=== PATIENT | male | born 1955 | race Caucasian/White ===

== ENCOUNTER 2017-03-15 17:56 | Emergency (ER) | payer OTHER ==
[~2017-03-15] VITALS: Ht 170.2 cm; Wt 67.6 kg
[~2017-03-15 17:56] MED LIST: CEPHALEXIN500 MG PO; NORCO 5-325 TA1 EACH PO
[2017-03-15] MEDS ORDERED: AUGMENTIN 875-1 EACH PO (20:31)
== END 2017-03-15 22:20 | disposition home or self-care (01) ==
LOC: ED 17:56
DX: N49.2 Inflammatory disorders of scrotum (principal); F17.200 Nicotine dependence, unspecified, uncomplicated
CPT/HCPCS: 76870; 80053; 81001; 85025; 96365; 96375; 99284; J0295; J2543; J7120

== ENCOUNTER 2018-12-19 16:07 | Emergency (ER) | payer OTHER ==
[~2018-12-19] VITALS: Ht 170.2 cm; Wt 66.2 kg
--- OUTSIDE RECORDS SUMMARY | ~2018-12-19 | XMS | Clinical Summary ---
Demographics + + + | Address | [address] | | | [place] [address] | + + + | Home Phone | | + + + | Preferred Language | Unknown | + + + | Marital Status | Unknown | + + + | Congregation Affiliation | Unknown | + + + | Race | Unknown | + + + | Ethnic Group | Unknown | + + + Author + + + | Author | [facility] | | | and [place] | + + + | Organization | [facility] | | | and [place] | + + + | Address | Unknown | + + + | Phone | Unavailable | + + + Support + + +---------+ + | Name | Relationship | Address | Phone | + + +---------+ + | Emelyn English | ECON | Unknown | | + + +---------+ + Care Team Providers + +------+ + | Care Diamond Assorter Name | Role | Phone | + +------+ + PCP | Unavailable | + +------+ + Allergies Not on File Medications + + + +---------+------+------+-------+ | Medication | Sig | Dispensed | Refills | Star | End | Statu | | | | | | t | Date | s | | | | | | Date | | | + + + +---------+------+------+-------+ | benazepril | Take 10 mg by mouth | | 0 | | | Activ | | (LOTENSIN) 10 mg | Daily. | | | | | e | | tablet | | | | | | | + + + +---------+------+------+-------+ | amLODIPine | Take 5 mg by mouth | | 0 | | | Activ | | (NORVASC) 5 mg | Daily. | | | | | e | | tablet | | | | | | | + + + +---------+------+------+-------+ Active Problems Not on file Encounters +--------+ + + + + | Date | Type | Specialty | Care Team | Description | +--------+ + + + + | 10/01/ | Documentati | Infectious Diseases | Phoebe Quiros, | Other ( Referral | | 2019 | on | | Factory Hand | From [facility] | | | | | | C) | +--------+ + + + + from Last 3 Months Social History + +-------+ +--------+------+ | Tobacco Use | Types | Packs/Day | Years | Date | | | | | Used | | + +-------+ +--------+------+ | Never Assessed | | | | | + +-------+ +--------+------+ + + + | Sex Assigned at | Date Recorded | | | | + + + | Not on file | | + + + + + + + | Job Start Date | Occupation | Industry | + + + + | Not on file | Not on file | Not on file | + + + + + + + + | Travel History | Travel Start | Travel End | + + + + + + | No recent travel history available. | + + Last Filed Vital Signs Not on file Plan of Treatment + + + + + | Health Maintenance | Due Date | Last Done | Comments | + + + + + | Vaccine: | | | | | Dtap/Tdap/Td (1 - | 7 | | | | Tdap) | | | | + + + + + | Vaccine: Zoster (1 | | | | | of 2) | 8 | | | + + + + + | Vaccine: Influenza | | | | | (#1) | 9 | | | + + + + + Results Not on filefrom Last 3 Months Insurance + +--------+ +--------+ +---------+--------+ | Payer | Benefi | Subscriber | Effect | Phone | Address | Type | | | t Plan | ID | marguerite | | | | | | / | | Dates | | | | | | Group | | | | | | + +--------+ +--------+ +---------+--------+ | [employer] | [employer] | [id number] | 09/14/19 | [phone] | | Medica | | MEDICAID HMO | HEALTH | | 19-Pre | 1 | | id | | | MDCD | | sent | | | | | | [place] | | | | | | + +--------+ +--------+ +---------+--------+ + +--------+ +--------+ + + | Guarantor Name | Accoun | Relation to | Date | Phone | Billing Address | | | t Type | Patient | of | | | | | | | | | | + +--------+ +--------+ + + | Saeed Reeder | Person | Self [birth year] | [address] | | | al/Fam | | 1956 | [phone] | [address] [place], | | | [address]uardo | | | [address] (Home) | [place] [address] | | | | | | [phone] | | | | | | | 9 (Work) | | + +--------+ +--------+ + + Advance Directives Patient has advance care planning documents on file. For more information, please contact:[facility] [place] [address]"
--- OUTSIDE RECORDS SUMMARY | ~2018-12-19 | XMS | Clinical Summary ---
Demographics + + + | Address | 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 For more information, please contact:[facility] [place] [address]"
--- OUTSIDE RECORDS SUMMARY | ~2018-12-19 | XMS | Encounter Summary ---
Demographics + + + | Address | [address] | | | [place] [address] | + + + | Home Phone | | + + + | Preferred Language | Unknown | + + + | Marital Status | Unknown | + + + | Gnosticism Affiliation | Unknown | + + + | Race | Unknown | + + + | Ethnic Group | Unknown | + + + Author + + + | Author | [facility] | | | and [place] | + + + | Organization | [facility] | | | [...] Team Providers + +------+ + | Care Block Machine Operator Name | Role | Phone | + +------+ + PCP | Unavailable | + +------+ + Reason for Visit +--------+ + | Reason | Comments | +--------+ + | Other | Referral From [facility] | +--------+ + Encounter Details +--------+ + + + + | Date | Type | Department | Care Team | Description | +--------+ + + + + | 10/01/ | Documentati | [facility] | Quiros Phoebe, | Other ( Referral | | 2019 | on | INFECTIOUS DISEASE | Helpdesk Specialist | From [facility] | | | | [address] | | C) | | | | [place], [place] | | | | | | [address] | | | | | | [phone] | | | +--------+ + + + + Social History + +-------+ +--------+------+ | Tobacco [...] recent travel history available. | + + documented as of this encounter Progress Phoebe Barahona, Helpdesk Specialist - 10/01/2018 1317 PDT Referral From [facility] For Hep [facility]. Record sent to scan. Sally CMA. d ocumented in this encounter Plan of Treatment Not on filedocumented as of this encounter Visit Diagnoses Not on filedocumented in this encounter"
--- OUTSIDE RECORDS SUMMARY | ~2018-12-19 | XMS | Encounter Summary ---
Demographics + + + | Address | [address] | | | [place] [address] | + + + | Home Phone | | + + + | Preferred Language | Unknown | + + + | Marital Status | Unknown | + + + | Faith Affiliation | Unknown | + + + | Race | Unknown | + + + | Ethnic Group | Unknown | + + + Author + + + | Author | [facility] | | | and [place] | + + + | Organization | [facility] | | | [...] Team Providers + +------+ + | Care Recovery Unit Operator Name | Role | Phone | [...] + + | 10/01/ | Documentati | [facility] | Quiros Phoebe, | Other ( Referral | | 2019 | on | INFECTIOUS DISEASE | Corporate Trust Officer | From [facility] | | | | [address] | | C) | | | | [place], [place] | | | | | | [address] | | | | | | [phone] | | | +--------+ + + + [...] as of this encounter Progress Phoebe Barahona, Corporate Trust Officer - 10/01/2018 1317 PDT Referral From [facility] For Hep C. Record sent to scan. Sally CMA. d ocumented in this encounter Plan of Treatment Not on filedocumented as of this encounter Visit Diagnoses Not on filedocumented in this encounter"
[~2018-12-19 16:07] MED LIST changes: +AUGMENTIN 875-1 EACH PO
[2018-12-19] MEDS ORDERED: BENAZEPRIL HCL10 MG PO (16:19)
[2018-12-19] MEDS ORDERED: AMLODIPINE BESYL5 MG PO (16:19)
== END 2018-12-19 18:12 | disposition home or self-care (01) ==
LOC: ED 16:07
DX: S69.91XA Unspecified injury of right wrist, hand and finger(s), initial encounter (principal); Z87.891 Personal history of nicotine dependence; Z79.899 Other long term (current) drug therapy; W01.198A Fall on same level from slipping, tripping and stumbling with subsequent striking against other object, initial encounter; Y99.0 Civilian activity done for income or pay
CPT/HCPCS: 73110; 99283-25; A9270

== ENCOUNTER 2023-12-20 17:00 | Emergency (ER) | payer OTHER ==
[~2023-12-20] VITALS: Ht 170.2 cm; Wt 72.8 kg
[~2023-12-20 17:00] MED LIST changes: +AMLODIPINE BESYL5 MG PO; +BENAZEPRIL HCL10 MG PO
[2023-12-20] MEDS ORDERED: ATORVASTATIN CA40 MG PO (17:31)
[2023-12-20] MEDS ORDERED: FLUTICASONE PRO16 GM NAS (17:32)
[2023-12-20] MEDS ORDERED: TYLENOL EXTRA500 MG PO (17:33)
[2023-12-20] MEDS ORDERED: TETRACAINE HCL 0.5% 4 ML BTL OU SCH (17:45)
[2023-12-20] MEDS ORDERED: FLUORESCEIN SOD 1 EA STRP OU ONE (17:45)
[2023-12-20] MEDS ORDERED: TETANUS-DIPHTHERIA TOXOIDS/PF 0.5 ML VIAL IM ONE ×2 (18:15→18:30)
[2023-12-20] MEDS ORDERED: ERYTHROMYCIN 3.5 GM HOME.PACK OP ONE ×2 (18:15→18:30)
[2023-12-20] MEDS ORDERED: HYDROCODONE BIT/ACETAMINOPHEN 5/325 MG 1 TAB HOME.PACK PO ONE (18:15)
[2023-12-20] MEDS ORDERED: HYDROCODON-ACE1 EA10 PO (18:18)
[2023-12-20] MEDS ORDERED: DIPHTH,PERTUSS(ACELL),TET VAC 0.5 ML SYRINGE IM ONE (18:30)
[2023-12-20 19:05] VITALS: BP 177/93
== END 2023-12-20 19:05 | disposition home or self-care (01) ==
LOC: ED 17:00
DX: T20.16XA Burn of first degree of forehead and cheek, initial encounter (principal); X03.0XXA Exposure to flames in controlled fire, not in building or structure, initial encounter
CPT/HCPCS: 90471; 90714; 99283-25; A9270

== ENCOUNTER 2024-11-09 19:24 | Emergency (ER) | payer MEDICARE ==
[~2024-11-09] VITALS: Ht 167.6 cm; Wt 71.0 kg
[~2024-11-09 19:24] MED LIST changes: +ATORVASTATIN CA40 MG PO; +FLUTICASONE PRO16 GM NAS; +HYDROCODON-ACE1 EA10 PO; +TYLENOL EXTRA500 MG PO
[2024-11-09 22:41] LABS: BLOOD/HGB, URINE LARGE (Negative); KETONE, URINE TRACE (Negative); LEUK ESTERASE, URINE SMALL (negative); NITRITE, URINE POSITIVE (negative)
[2024-11-09 22:47] LABS: EPITHELIAL CELLS, URINE SQUAMOUS 1+ /lpf (0-1+)
[2024-11-09 22:48] LABS: BACTERIA, URINE RARE /hpf (negative); CASTS, URINE NONE SEEN \\lpf; CRYSTALS, URINE NONE SEEN (0-1+); REFLEX CULTURE, URINE Yes (No)
[2024-11-09] MEDS ORDERED: PYRIDIUM100 MG PO (23:11)
[2024-11-09] MEDS ORDERED: MACROBID 100 M100 MG PO (23:11)
[2024-11-09] MEDS ORDERED: PHENAZOPYRIDINE HCL 100 MG TAB PO ONE (23:15)
[2024-11-09] MEDS ORDERED: ACETAMINOPHEN 500 MG TAB PO ONE (23:15)
[2024-11-09] MEDS ORDERED: NITROFURANTOIN MONOHYD MACROCR 100 MG HOME.PACK PO ONE (23:15)
[2024-11-09 23:27] VITALS: BP 132/92
== END 2024-11-09 23:30 | disposition home or self-care (01) ==
LOC: ED 19:24
PROVIDERS: Internal Medicine
DX: N39.0 Urinary tract infection, site not specified (principal); I10 Essential (primary) hypertension; F15.11 Other stimulant abuse, in remission; B19.20 Unspecified viral hepatitis C without hepatic coma; Z87.891 Personal history of nicotine dependence; Z79.899 Other long term (current) drug therapy
CPT/HCPCS: 81001; 87077; 87088; 99283; A9270

== ENCOUNTER 2024-11-25 18:56 | Emergency (ER) | payer MEDICARE, OTHER ==
[~2024-11-25] VITALS: Ht 167.6 cm; Wt 73.9 kg
[~2024-11-25 18:56] MED LIST changes: +MACROBID 100 M100 MG PO; +PYRIDIUM100 MG PO
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
[2024-11-25 20:25] LABS: BASOPHILS 0.5 % (0.2-1.2); EOSINOPHILS 1.0 % (0.8-7.0); LYMPHOCYTES 10.1 % (21.8-53.1); MCH 32.0 PG (25.7-32.2); MCHC 36.3 g/dL (32.3-36.5); MCV 88.1 fL (79.0-92.2); MONOCYTES 8.8 % (5.3-12.2); NEUTROPHILS 79.2 % (34.0-67.9); RBC 3.53 M/uL (4.63-6.08)
[2024-11-25 20:37] LABS: ALT (SGPT) 50.0 U/L (14-59); AST (SGOT) 54.0 U/L (15-37); GLOMERULAR FILTRATION RATE,EST 101.0 mL/min (>60); PROTEIN, TOTAL 7.6 g/dL (6.4-8.2); UREA NITROGEN 7.0 mg/dL (7-18)
[2024-11-25 20:42] LABS: BLOOD/HGB, URINE MODERATE (Negative); KETONE, URINE >=80 (Negative); LEUK ESTERASE, URINE MODERATE (negative); NITRITE, URINE NEGATIVE (negative)
[2024-11-25 20:47] LABS: BACTERIA, URINE RARE /hpf (negative); CASTS, URINE NONE SEEN \\lpf; CRYSTALS, URINE NONE SEEN (0-1+); EPITHELIAL CELLS, URINE SQUAMOUS 1+ /lpf (0-1+)
[2024-11-25 20:48] LABS: REFLEX CULTURE, URINE Yes (No)
[2024-11-26] MEDS ORDERED: MACROBID 100 M100 MG PO (00:33)
[2024-11-26] MEDS ORDERED: NITROFURANTOIN MONOHYD MACROCR 100 MG HOME.PACK PO ONE ×2 (00:36→00:45)
[2024-11-26 01:23] VITALS: BP 132/74
== END 2024-11-26 01:25 | disposition home or self-care (01) ==
LOC: ED 18:56
PROVIDERS: Family Medicine
DX: E87.1 Hypo-osmolality and hyponatremia (principal); T83.091A Other mechanical complication of indwelling urethral catheter, initial encounter; Y84.6 Urinary catheterization as the cause of abnormal reaction of the patient, or of later complication, without mention of misadventure at the time of the procedure; I10 Essential (primary) hypertension; Z87.891 Personal history of nicotine dependence; Z79.899 Other long term (current) drug therapy
CPT/HCPCS: 36415; 51798; 73060; 80053; 81001; 84295; 85025; 87077; 87088; 87186; 99283; J7131

== ENCOUNTER 2025-01-03 09:44 | Day surgery (SDC) | payer MEDICARE ==
[~2025-01-03] VITALS: Ht 167.6 cm; Wt 75.0 kg
[~2025-01-03 09:44] MED LIST changes: -AMLODIPINE BESYL5 MG PO; -BENAZEPRIL HCL10 MG PO; +CEFAZOLIN SODIUM 2 GM in SODIUM CHLORIDE 0.9% 100 ML IV SCH; +CRANBERRY200 MG PO; +IBLOOD GLUCOSE TEST STRIP 1 EA TEST VI PRN; +LACTATED RINGER'S 1,000 ML IV SCH; +LIDOCAINE HCL 1% 5 ML SDV INJ ONE; +LOTENSIN40 MG PO; +NORVASC10 MG PO; +TAMSULOSIN HCL0.4 MG PO
[2025-01-03 10:17] VITALS: BP 114/74
[2025-01-03] MEDS ORDERED: SEVOFLURANE 250 ML BTL INH ONE (10:33)
--- NOTE | 2025-01-03 10:38 | NUR ---
FAMILY AT BS.
--- NOTE | 2025-01-03 11:37 | NUR ---
1035 warm blankets on. update given.
--- NOTE | 2025-01-03 11:37 | NUR ---
1120 dr kashif english break pt updated with this. denies any needs. iv patent.
--- NOTE | 2025-01-03 11:50 | NUR ---
emptied 250 ml yellow urine from leg bag.
[2025-01-03] MEDS ORDERED: MORPHINE SULFATE 4 MG/ML VIAL IV PRN (12:30)
[2025-01-03] MEDS ORDERED: FLUTICASONE PROPIONATE 50 MCG BTL NAS PRN (12:30)
[2025-01-03] MEDS ORDERED: HYDROmorphone HCL 1 MG/ML SYR IV PRN ×2 (12:30→13:30)
[2025-01-03] MEDS ORDERED: OXYCODONE/APAP 5/325 TAB PO PRN (12:30)
[2025-01-03] MEDS ORDERED: LACTATED RINGER'S 1,000 ML IV SCH (12:30)
[2025-01-03] MEDS ORDERED: ACETAMINOPHEN 500 MG TAB PO PRN (12:30)
[2025-01-03] MEDS ORDERED: ROCURONIUM BROMIDE 50 MG/5 ML SYR ONE ×2 (12:34→13:49)
[2025-01-03] MEDS ORDERED: fentaNYL citrate 100 MCG/2 ML VIAL ONE ×2 (12:34→13:31)
[2025-01-03] MEDS ORDERED: LIDOCAINE HCL 2% 5 ML SDV ONE (12:34)
[2025-01-03] MEDS ORDERED: DEXAMETHASONE SOD PHOS 4 MG/ML VIAL ONE (13:01)
[2025-01-03] MEDS ORDERED: GLYCOPYRROLATE 1 MG/5 ML MDV ONE (13:26)
[2025-01-03] MEDS ORDERED: MAGNESIUM SULFATE 1 GM/2 ML VIAL ONE (13:26)
[2025-01-03] MEDS ORDERED: fentaNYL citrate 50 MCG/ML SDV IV PRN (13:30)
[2025-01-03] MEDS ORDERED: IBLOOD GLUCOSE TEST STRIP 1 EA TEST VI PRN (13:30)
[2025-01-03] MEDS ORDERED: NALOXONE HCL 0.4 MG SYR IV PRN (13:30)
[2025-01-03] MEDS ORDERED: SUGAMMADEX SODIUM 200 MG/2 ML ML ONE (13:49)
[2025-01-03] MEDS ORDERED: KETOROLAC TROMETHAMINE 30 MG/ML VIAL ONE (13:49)
[2025-01-03] MEDS ORDERED: TRANEXAMIC ACID 1,000 MG/10 ML AMP ONE (13:59)
--- NOTE | 2025-01-03 15:00 | NUR ---
PT TO ROOM 125 FROM PACU - 3 STAFF TRSF LATERAL FROM STRECHER TO BED, ORIENTED TO CALL LIGHT, CBI WNL - COUNTED WITH LILY VARGHESE, PT DENIES NEEDS, FAMILY AT SIDE. CALL LIGHT IN REACH - SCD'S ON IV TO R ARM WNL.
[2025-01-03 15:30] VITALS: BP 121/94
[2025-01-03] MEDS ORDERED: LEVOFLOXACIN500 MG PO (16:04)
[2025-01-03] MEDS ORDERED: OXYCODONE HCL5 M1 PO (16:05)
--- NOTE | 2025-01-03 16:14 | NUR ---
in room with rt - pt awake and sats 96% at 1 L. pt resting with call light.
--- NOTE | 2025-01-03 16:19 | NUR ---
01/03/25 1619 Janie Tinsley Litzy 1433-PT PRESENTS TO PACU, SEMI CARMEN POSITION, AWAKE BUT DROWSY. PT DENIES PAIN BUT COMPLAINS OF NAUSEA. PT COUGHING, DRY WRETCHING AND BELCHING. LR HANGING TO RW IV, O2 AT 6L PER MASK, BREATHING EVEN AND NON LABORED. ABD SOFT, NON DISTENDED. CBI INFUSING, NO DRAINAGE AROUND CATHETER, RED COLORED FLUID IN DRAINAGE BAG. JOHNSON BAG EMPTIED FOR 1200 ML, APPROX 2050 ML MISSING FROM CBI BAGS. ONE BAG CLAMPED AND MARKED. ALL MONITORS IN PLACE. 1435- PT CONTINUES TO COUGH AND WRETCH, MOVED TO ROOM AIR. 1436- MEDICATED WITH ZOFRAN. 1440- PT SATS DROP TO 84% ON ROOM AIR, PT FOLLOWS INSTRUCTION TO DEEP BREATH AND SATS IMPROVE TO 91-92%, BUT THEN DROP BACK INTO THE 80'S. O2 PLACED PER NC AT 2L. 1445- PT CONTINUES TO COMPLAIN OF NAUSEA, MEDICATED WITH INAPSINE. 1450- PT RESTING INTERMITTENTLY. REPORTS HIS VISION FEELS "TRAVIS". ENCOURAGED TO REST WITH EYES CLOSED, TO POTENTIALLY IMPROVE NAUSEA. 1505- PT WAKES INTERMITTENTLY, REPORTS HIS NAUSEA IS IMPROVING JUST FEELS QUEASY. PT USING ICE CHIPS TO WET MOUTH, TOLERATING WELL. 1517- PLAN TO RETURN TO TAKE PT TO MED/SURG. 1150 ML OF CBI INFUSED, 1175 ML OF YELLOW TINGED FLUID EMPTIED FROM JOHNSON BAG. BAGS REMARKED TO START COUNTS FOR MED/SURG. NO RED OR PINK NOTED IN JOHNSON BAG. 1530- PT TAKEN TO ROOM 125, FAMILY IN ROOM. PT AWAKE BUT DROWSY. CBI CONTINUES TO INFUSE. HELPED SLIDE PT FROM STRETCHER TO BED AND VITALS OBTAINED. LR TKO TO RW IV. REPORT TO Cali LUGO RN AT BEDSIDE, CARE OF PT TURNED OVER AT THIS TIME.
[2025-01-03 16:30] VITALS: BP 118/61
[2025-01-03] MEDS ORDERED: VENTOLIN HFA18 GM INH (17:14)
--- NOTE | 2025-01-03 17:14 | NUR ---
MED REC COMPLETE
[2025-01-03 17:30] VITALS: BP 128/68
--- NOTE | 2025-01-03 18:02 | NUR ---
pt talking on phone, cbi lezama drainage light faint pink - call light in reach, vitals wnl - call light in reach - pt tolerated reg diet - xtra pudding.
[2025-01-03 18:37] VITALS: BP 129/65
--- NOTE | 2025-01-03 18:41 | NUR ---
pt denies pain at this time, watching tv - vs wnl. cbi light pink draining to lezama, call light in reach.
--- NOTE | 2025-01-03 19:41 | NUR ---
REPORT RECEIVED FROM DAY SHIFT RN. PT LYING IN BED ALERT AND ORIENTED. URINE IN JOHNSON TUBING CLEAR YELLOW. CBI CLAMPED AT THIS TIME. CELL PHONE PLACED IN PT JACKET POCKET PER REQUEST. NO FURTHER NEEDS. WHITE BOARD UPDATED. CALL LIGHT IN REACH.
[2025-01-03 20:08] VITALS: BP 118/66
--- NOTE | 2025-01-03 20:20 | NUR ---
PT RESTING WITH EYES CLOSED. AWAKENS EASILY. EVENING ASSESSMENT COMPLETE. VS AND I&O OBTAINED. CBI REMAINS CLAMPED. URINE IN JOHNSON TUBING CLEAR YELLOW. PT DENIES PAIN OR NAUSEA. 1L/NC IN PLACE. NOT CHORNIC. SpO2 MID 90'S. CPOX AND SCD'S IN PLACE. PT DENIES QUESTIONS OR CONCERNS. BED ALARM FOR SAFETY. CALL LIGHT IN REACH.
--- NOTE | 2025-01-03 22:38 | NUR ---
PT AWAKE IN BED. GOWN AND LINENS CHANGED DUE TO PT BEING SWEATY. PT DENIES PAIN. URINE IN JOHNSON TUBING PINK TINGED. CBI CLAMPED. OXYGEN TITRATED OFF AT THIS TIME. CPOX IN PLACE. NO FURTHER NEEDS. CALL LIGHT IN REACH.
--- NOTE | 2025-01-03 23:26 | NUR ---
CPOX ALARMING. ISSUE RESOLVED. SpO2 MID 90'S ON RA. FRESH WATER PROVIDED. NO FURTHER NEEDS.
[2025-01-04 00:48] VITALS: BP 148/69
--- NOTE | 2025-01-04 00:56 | NUR ---
CPOX ALARMING. SpO2 MID 80'S ON RA PER PT. SpO2 94% ON RA UPON ENTERING ROOM. 1L/NC PLACED. VS AND I&O OBTAINED. JOHNSON PATENT WITH QS PINK TINGED URINE. PT DENIES PAIN OR NAUSEA. NO FURTHER NEEDS. BED ALARM FOR SAFETY. CALL LIGHT IN REACH.
--- NOTE | 2025-01-04 02:56 | NUR ---
PT RESTING IN BED WITH EYES CLOSED. RESPIRATIONS EVEN. CALL LIGHT IN REACH.
--- NOTE | 2025-01-04 05:24 | NUR ---
PT IN BED RESTING WITH EYES CLOSED. SpO2 97% WITH 1L/NC. HR 60'S.
[2025-01-04 06:35] VITALS: BP 168/787
--- NOTE | 2025-01-04 06:48 | NUR ---
PT RESTING IN BED WITH EYES CLOSED. AWAKENS EASILY. VS AND I&O OBTAINED. PT DENIES PAIN. JOHNSON PATENT WITH FAINT PINK TINGED URINE. CBI CLAMPED. SCHEDULED MEDS ADMIN PER EMAR. PT DENIES NEEDS. CALL LIGHT IN REACH.
--- NOTE | 2025-01-04 07:58 | NUR ---
PATIENT IN BED. REPORT RECEIVED FROM HELDER VARGHESE. MD BUSTAMANTE AT BEDSIDE. VERBAL ORDER RECEIVED TO MONITOR FOR INCREASING RED COLOR IN URINE IF PATIENT IS SUCESSFUL WITH BM THIS MORNING. TITRATE PATIENT OFF CURRENT 1 LITER OF OXYGEN, START BEDSIDE INCINTIVE SPIROMETER AND PATIENT TEACHING. NO FURTHER ORDERS AT THIS TIME. PATIENT ON TOILET. SOAKING ROOM OPERATOR ASSISTED PATIENT BACK TO BED. PATIENT REPORTS HE WAS UNABLE TO HAVE A BM, REPORTS HE DID NOT STRAIN. CALL LIGHT IN REACH. IV FLUID INFUSING. SCDS ON, CBI CLAMPED, URINE PINK. CPOX ON, CALL LIGHT IN REACH.
--- NOTE | 2025-01-04 08:13 | NUR ---
PATIENT IN BED. SCHEDULED MEDICATION ADMINISTERED. SCDS IN PLACE. CBI CLAMPED, URINE PINK. IV FLUID INFUSING WITHOUT DIFFICULTY. O2 SAT 92% ON ROOM AIR, IS AT BEDSIDE. CALL LIGHT AND PERSONAL BELONGINGS IN REACH.
--- NOTE | 2025-01-04 08:46 | NUR ---
UR CLINICAL REVIEW: 2 MN FOR VERSALUS-MEETS EXTENDED RECOVERY FOR TURP WITH NEED FOR 24 HR CBI AND PAIN CONTROL MEDICARE EXTENDED STAY 01/03/25 @ 1224 ORDER MATCHES REG NO AUTH REQUIRED PER MEDICARE GUIDELINES DISCHARGE TO HOME ANTICIPATED 01/04/25
[2025-01-04] MEDS ORDERED: AMLODIPINE BESYLATE 5 MG TAB PO SCH (09:00)
--- NOTE | 2025-01-04 09:10 | NUR ---
ALERT AND ORIENTED IN BED. PLANS TO DC TO HOME TODAY. LIVES IN AN APARTMENT, HAS STAIRS, DOES OK WITH THEM AT BASELINE AND HAS A CANE AND OTHER DME HE STATES IF HE NEEDS ANY TO ASSIST WITH MOBILITY. STATES AT BASELINE HE DRIVES AND HAS NO DIFFICULTY PAYING FOR FOOD, MEDS, UTILITIES. NO CM NEEDS AT THIS TIME.
[2025-01-04 09:52] VITALS: BP 127/69
--- NOTE | 2025-01-04 10:34 | NUR ---
SBA TO THE BATHROOM. PATIENT WAS STEADY ON THEIR FEET WITH NO REPORTS OF PAIN OR NAUSEA. PATIENT RETURNED TO BED. SCD'S AND CPOX WERE REATTACHED. CALL LIGHT AND PERSONAL ITEMS ARE WITHIN REACH.
--- NOTE | 2025-01-04 11:03 | NUR ---
PATIENT IN BED. 500 ML CLEAR RED URINE FROM JOHNSON CATHETER. PATIENT REPORTS HE HAS BEEN USING THE IS AND IT CAUSED HIM TO COUGH. PATIENT EDUCATION PROVIDED. ENCOURAGE PATIENT TO DRINK WATER, PROVIDED PATIENT WITH TWO CUPS FRESH ICE WATER, JOHNSON EMPTIED. CALL LIGHT AND PERSONAL BELONGINGS IN REACH. PATIENT DENIES CONCERNS.
[2025-01-04 11:05] VITALS: BP 127/69
--- NOTE | 2025-01-04 12:00 | NUR ---
PATIENT IN BED. CBI CAPPED, JOHNSON CATHETER PATENT AND URINE CLEAR PINK. IV CATHETER REMOVED WNL, TIP INTACT. DISCHARGE TEACHING PROVIDED WITH VERBAL AND WRITTEN INSTRUCTION. PATIENT VERBALIZED UNDERSTANDING AND DENIES QUESTIONS OR CONCERNS AT THIS TIME. CALL LIGHT IN REACH.
[2025-01-04 12:09] VITALS: BP 153/64
--- NOTE | 2025-01-04 12:27 | NUR ---
PATIENT SITTING AT EDGE OF BED, LUNCH AT BEDSIDE.
--- NOTE | 2025-01-04 12:55 | NUR ---
PATIENT OFF UNIT VIA WHEELCHAIR WITH CNA. DUARTE CALLED FOR CARE RIDE AT PATIENT'S REQUEST. 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
--- NOTE | 2025-01-10 14:10 | PATH ---
[facility] [address] [place], [place] [address] Signed SPECIMEN(S): A PROSTATE CHIPS SPECIMEN SOURCE: A. PROSTATE CHIPS CLINICAL HISTORY: BPH, TURP. FINAL PATHOLOGIC DIAGNOSIS: Prostate chips, TURP: - Benign prostatic nodular hyperplasia. - Negative for inflammation, atypia or malignancy. NA MICROSCOPIC EXAMINATION: Histologic sections of all submitted blocks are examined by light microscopy. These findings, together with the gross examination, support the pathologic diagnosis. GROSS DESCRIPTION: The specimen, labeled and designated "Renee Palmer, " and designated on the requisition "prostate chips," is received in formalin is a 6 g, 4.5 x 3.7 x 1.2 cm aggregate of pink-osborn to snow rubbery soft tissue. The specimen is entirely submitted in (A1-A5). FB (under the direct supervision of a pathologist) The Gross Description was prepared using a voice recognition system. The report was reviewed for accuracy; however, sound-alike word errors, addition and/or deletions may occur. If there is any question about this report, please contact Client Services. ADDITIONAL NOTES: Immunohistochemical and/or in situ hybridization studies if performed in this case included appropriate positive controls that reacted as expected. This test was developed and its performance characteristics determined by [facility]. It has not been cleared or approved by the U.S. Food and Drug Administration. The FDA has determined that such clearance or approval is not necessary. This test is used for clinical purposes. It should not be regarded as investigational or for research. [facility] is certified under the Clinical Laboratory Improvement Amendments of 1988 (CLIA) as qualified to perform high complexity clinical PATIENT NAME: DONELL PALMER PATHOLOGY DATE OF : 59 REPORT #: [id number] PHYSICIAN: VIDYA PATHOLOGY PCP: RAJNI SANCHEZ MD REPORT IS CONFIDENTIAL AND NOT TO BE RELEASED WITHOUT AUTHORIZATION [facility] [address] [place] [address] Signed laboratory testing. PERFORMING LABORATORY: Technical component was performed by [facility], [address] [place] [address] (CLIA# [id number]). Professional interpretation was performed by [facility] - [facility] [address] [place] [phone] [id number] Diagnostician: Noel Jimenez MD Pathologist Electronically Signed 01/10/2025 Copies: ~ PATIENT NAME: DONELL PALMER PATHOLOGY DATE OF : 59 REPORT #: [id number] PHYSICIAN: VIDYA GALEANO PCP: RAJNI SANCHEZ MD REPORT IS CONFIDENTIAL AND NOT TO BE RELEASED WITHOUT AUTHORIZATION
== END 2025-01-04 12:51 | disposition home or self-care (01) ==
LOC: DS 09:44 → MS 15:45 → DS 01-04 12:51
PROVIDERS: ATTEND Urology
PROC: 0VT08ZZ Resection of Prostate, Via Natural or Artificial Opening Endoscopic (ICD-10-PCS; principal; 2025-01-03 11:50)
DX: N40.1 Benign prostatic hyperplasia with lower urinary tract symptoms (principal); R33.9 Retention of urine, unspecified
CPT/HCPCS: 00914; 51700; 88305; 94762; 94799; 96360; 96361; C1713; C1769; J0688; J0696; J1100; J1790; J1885; J2003; J2405; J2704; J3010; J3475; J3490; J7121